=== PATIENT | female | born 1980 | race Caucasian/White ===

== ENCOUNTER → 2019-05-07 16:24 | Outpatient (CLI) | payer BC, SELFPAY ==
--- NOTE | 2019-05-07 16:28 | XR_ITS ---
XR chest 2V HISTORY: ITS.REASON: BRONCHITIS ORDERING PHYSICIAN: Stan Huitron MD PATIENT AGE: 38 years COMPARISON: 01/19/2019 FINDINGS: The cardiomediastinal silhouette and pulmonary vascularity are within normal limits. The lungs are clear without infiltrates, suspicious nodules, or pleural effusions. No acute bony abnormalities. IMPRESSION: Negative chest, no acute finding
== END ==
PROVIDERS: PCP Internal Medicine Adolescent Medicine; Visit Provider Internal Medicine Adolescent Medicine
DX: J40 Bronchitis, not specified as acute or chronic (principal)
CPT/HCPCS: 71046

== ENCOUNTER 2020-07-02 13:00 | Outpatient (RCR) | payer OTHER, SELFPAY | END 2020-07-02 14:05 | disposition home or self-care (01) | LOC: OT 13:00 | PROVIDERS: PCP Internal Medicine Adolescent Medicine; Visit Provider Internal Medicine Adolescent Medicine | DX: G54.0 Brachial plexus disorders (principal) | CPT/HCPCS: 97014; 97035; 97110; 97140; 97165; 97530; G0283 ==

== ENCOUNTER 2020-07-22 15:00 | Outpatient (RCR) | payer OTHER, SELFPAY ==
--- NOTE | 2020-07-08 17:54 | HMH.PTOPEV ---
PT Outpatient Evaluation Rehab PT Outpatient Evaluation Start: 07/08/20 16:48 Freq: Status: Active Protocol: Document 07/08/20 17:22 GUIDOALANA (Rec: 07/08/20 17:54 LASHAY [id number]) Electronically Signed By Nathaniel Yu, PT 07/08/20 17:22 Outpatient Therapy Subjective History Subjective History This is the initial Physical Therapy evaluation for Linda Ceron. Pt is a 39 y/o female referred to PT for c/o RUE pain and paresthesia along w/ pain and stiffness in cerval spine. Pt reports this began insidiously ~ 1stw ione of May . Pt rpeorts she felt like she slept wrong but pain increased throughout the day to a point of severe pain w/ inability to rotate head. P reports she began having paresthesia in RUE through whole arm Pt reports she went tochiro w/out relief and then had family member who is PT treat her and she was able to get some relief. Chief Complaint Pain,Spasms,Stiff,Paresthesia Symptom Type Ache,Throb,Numbness Symptoms Relieved By Nothing Symptoms Aggravated By Physical Activity Prior Functional Limitations None Current Functional Limitations Lifting,Housework,Desk Work/ Reading,Recreation Activity Symptom Description Intermittent Level of pain today (0-10) 3 Pain scale - at its best (0-10) 0 Pain scale - at its worst (0-10) 5 Cervical Eval Palpation Cervical Muscles R CT Junction,L CT Junction,R Upper Trapezius,L Upper Trapezius Passive Joint Mobility Cervical PIVM Dec: R C4/5 L C4/5 R C5/6 L C5/6 R C6/7 L C6/7 R C7/T1 L C7/T1 AROM Cervical Spine Extension Active Range of 45 Motion (degrees) Cervical Spine Flexion Active Range of 40 Motion (degrees) Cervical Spine Right Lateral Flexion 30 Active Range of Motion (degrees) Cervical Spine Left Lateral Flexion 30 Active Range of Motion (degrees) Cervical Spine Right Rotation A
== END 2020-07-22 15:05 | disposition home or self-care (01) ==
LOC: PT 15:00
PROVIDERS: PCP Internal Medicine Adolescent Medicine; Visit Provider Internal Medicine Adolescent Medicine
DX: G54.0 Brachial plexus disorders (principal)
CPT/HCPCS: 20560; 20561; 97010; 97012; 97014; 97110; 97163; G0283

== ENCOUNTER → 2021-08-23 10:27 | Outpatient (CLI) | payer OTHER, SELFPAY ==
[2021-08-23 12:45] LABS: Basophils # 0.1 K/mm3 (0-0.2); Basophils % 0.9 % (0.1-2.0); Eosinophils # 0.1 K/mm3 (0.0-0.4); Eosinophils % 0.9 % (0.1-12.0); Hematocrit 44.6 % (37.0-47.0); Hemoglobin 14.9 g/dL (12.2-16.2); Lymphocytes # 2.3 K/mm3 (0.7-4.5); Mean Corpuscular HGB Conc 33.3 g/dL (31.8-35.4); Mean Corpuscular Hemoglobin 32.2 pg (27.0-31.2); Mean Corpuscular Volume 96.6 fl (81-99); Mean Platelet Volume 7.5 fl (7.4-10.4); Monocytes # 0.4 K/mm3 (0.1-1.0); Monocytes % 4.1 % (1.7-9.3); Platelet Count 457 K/mm3 (142-424); Red Blood Count 4.61 M/mm3 (4.20-5.40); Red Cell Distribution Width 12.9 % (11.5-17.5); White Blood Count 8.8 K/mm3 (4.8-10.8)
[2021-08-23 13:07] LABS: HCG Qualitative, Serum Negative (Negative)
[2021-08-23 13:28] LABS: Alanine Aminotransferase 20 U/L (12-78); Albumin Level 4.7 g/dl (3.5-5.0); Albumin/Globulin Ratio 1.8 (1.1-1.8); Alkaline Phosphatase 62 U/L (38-126); Anion Gap 14.3 mEq/L (5-15); Aspartate Amino Transferase 28 U/L (14-36); Bilirubin,Total 0.5 mg/dl (0.2-1.3); Blood Urea Nitrogen 13 mg/dl (7-17); Calcium 9.9 mg/dl (8.4-10.2); Carbon Dioxide 27 mmol/L (22.0-30.0); Chloride 101 mmol/L (98-107); Chol/HDL Ratio 4.3 (1-3.5); Cholesterol 225 mg/dl (140-200); Estimated Glomerular Filt Rate 137 ml/min (>60); GFR (African American) 165 ML/MIN (>60); Globulin 2.6 g/dL (1.3-3.2); Glucose 104 mg/dl (74-100); HDL Cholesterol 52 mg/dl (40-60); Potassium 4.3 mmoL/L (3.5-5.1); Sodium 138 mmol/L (136-145); Total Protein,Serum 7.3 g/dl (6.3-8.2); Triglycerides 136 mg/dl (30-150); VLDL Cholesterol 27 mg/dL (0-40)
[2021-08-23 13:38] LABS: Direct LDL Cholesterol 134.48 mg/dL (100-129)
== END ==
PROVIDERS: PCP Internal Medicine Adolescent Medicine; Visit Provider Dermatology
DX: L70.0 Acne vulgaris (principal); Z79.899 Other long term (current) drug therapy
CPT/HCPCS: 36415; 80053; 80061; 84703; 85025

== ENCOUNTER → 2021-08-24 12:58 | Outpatient (POV) | payer OTHER, SELFPAY | PROVIDERS: Visit Provider Dermatology | DX: Z00.00 Encounter for general adult medical examination without abnormal findings (principal) ==

== ENCOUNTER → 2021-09-06 13:20 | Outpatient (CLI) | payer OTHER, SELFPAY ==
--- NOTE | 2021-09-06 13:22 | MM_ITS ---
PROCEDURE: MM DIG SCREENING MAMM BI W/CAD Digital Breast Tomosynthesis Included CLINICAL INDICATION: SCREENING There is no personal or family history of breast cancer., patient without complaints COMPARISON: No exams were available for comparison TECHNIQUE: Standard CC and MLO images and 3D Tomosynthesis was obtained. R2 CAD reviewed. FINDINGS: Prominent diffuse somewhat heterogenic fibroglandular densities are seen throughout both breasts and the findings are bilateral and symmetrical. There are no CAD markings. Rodrigo images are most helpful in this diffuse increased heterogenic parenchymal pattern I see no suspicious lesion and no suspicious microcalcifications. IMPRESSION: Diffusely dense and heterogenic parenchymal pattern with no suspicious lesions seen BI-RAD Category: 1 Negative FOLLOW-UP: 1YR 1 Year Follow-up (A letter has been sent to the patient regarding results of the study.) Dictated by: Dr. Ronaldo Matute MD 09/14/2021 11:06 Dr. Ronaldo Matute MD in [place] 09/14/2021 11:06
== END ==
PROVIDERS: PCP Internal Medicine Adolescent Medicine; Visit Provider Nurse Practitioner Family
DX: Z12.31 Encounter for screening mammogram for malignant neoplasm of breast (principal)
CPT/HCPCS: 77063; 77067

== ENCOUNTER → 2021-09-28 15:43 | Outpatient (POV) | payer OTHER, SELFPAY | PROVIDERS: Visit Provider Dermatology | DX: Z00.00 Encounter for general adult medical examination without abnormal findings (principal) ==

== ENCOUNTER → 2021-11-01 08:02 | Outpatient (CLI) | payer OTHER, SELFPAY ==
[2021-11-01 12:19] LABS: Basophils # 0.1 K/mm3 (0-0.2); Basophils % 0.9 % (0.1-2.0); Eosinophils # 0.1 K/mm3 (0.0-0.4); Eosinophils % 1.2 % (0.1-12.0); Hematocrit 42.8 % (37.0-47.0); Hemoglobin 14.2 g/dL (12.2-16.2); Lymphocytes # 2.3 K/mm3 (0.7-4.5); Lymphocytes % 25.4 % (10-50); Mean Corpuscular HGB Conc 33.2 g/dL (31.8-35.4); Mean Corpuscular Hemoglobin 31.8 pg (27.0-31.2); Mean Corpuscular Volume 95.7 fl (81-99); Mean Platelet Volume 7.1 fl (7.4-10.4); Monocytes # 0.5 K/mm3 (0.1-1.0); Monocytes % 5.3 % (1.7-9.3); Neutrophils # 6.1 K/mm3 (1.8-7.8); Neutrophils % 67.2 % (37.0-80.0); Platelet Count 421 K/mm3 (142-424); Red Blood Count 4.47 M/mm3 (4.20-5.40); Red Cell Distribution Width 12.7 % (11.5-17.5); White Blood Count 9.2 K/mm3 (4.8-10.8)
[2021-11-01 12:57] LABS: Alanine Aminotransferase 63 U/L (12-78); Albumin Level 4.6 g/dl (3.5-5.0); Albumin/Globulin Ratio 2.1 (1.1-1.8); Alkaline Phosphatase 57 U/L (38-126); Anion Gap 12.2 mEq/L (5-15); Aspartate Amino Transferase 52 U/L (14-36); Bilirubin,Total 0.3 mg/dl (0.2-1.3); Blood Urea Nitrogen 11 mg/dl (7-17); Calcium 9.9 mg/dl (8.4-10.2); Carbon Dioxide 29 mmol/L (22.0-30.0); Chloride 99 mmol/L (98-107); Cholesterol 229 mg/dl (140-200); Estimated Glomerular Filt Rate 111 ml/min (>60); GFR (African American) 134 ML/MIN (>60); Globulin 2.2 g/dL (1.3-3.2); Glucose 84 mg/dl (74-100); HDL Cholesterol 46 mg/dl (40-60); Potassium 4.2 mmoL/L (3.5-5.1); Sodium 136 mmol/L (136-145); Total Protein,Serum 6.8 g/dl (6.3-8.2); Triglycerides 180 mg/dl (30-150); VLDL Cholesterol 36 mg/dL (0-40)
[2021-11-01 13:09] LABS: Direct LDL Cholesterol 144.36 mg/dL (100-129)
[2021-11-01 17:22] LABS: HCG Qualitative, Serum Negative (Negative)
== END ==
PROVIDERS: PCP Internal Medicine Adolescent Medicine; Visit Provider Dermatology
DX: L70.0 Acne vulgaris (principal); Z79.899 Other long term (current) drug therapy
CPT/HCPCS: 80053; 80061; 84703; 85025

== ENCOUNTER → 2021-11-02 15:12 | Outpatient (POV) | payer OTHER, SELFPAY | PROVIDERS: Visit Provider Dermatology | DX: Z00.00 Encounter for general adult medical examination without abnormal findings (principal) ==

== ENCOUNTER → 2021-12-07 12:55 | Outpatient (POV) | payer OTHER, SELFPAY | PROVIDERS: Visit Provider Dermatology | DX: Z00.00 Encounter for general adult medical examination without abnormal findings (principal) ==

== ENCOUNTER → 2022-01-26 12:18 | Outpatient (CLI) | payer OTHER, SELFPAY ==
[2022-01-26 13:17] LABS: Basophils # 0.1 K/mm3 (0-0.2); Basophils % 0.7 % (0.1-2.0); Eosinophils % 0.3 % (0.1-12.0); Hematocrit 44.2 % (37.0-47.0); Hemoglobin 14.6 g/dL (12.2-16.2); Lymphocytes # 2.2 K/mm3 (0.7-4.5); Lymphocytes % 22.5 % (10-50); Mean Corpuscular HGB Conc 33.1 g/dL (31.8-35.4); Mean Corpuscular Volume 96.7 fl (81-99); Mean Platelet Volume 7.4 fl (7.4-10.4); Monocytes # 0.4 K/mm3 (0.1-1.0); Monocytes % 3.8 % (1.7-9.3); Neutrophils # 7.2 K/mm3 (1.8-7.8); Neutrophils % 72.7 % (37.0-80.0); Platelet Count 421 K/mm3 (142-424); Red Blood Count 4.57 M/mm3 (4.20-5.40); Red Cell Distribution Width 13.1 % (11.5-17.5); White Blood Count 9.9 K/mm3 (4.8-10.8)
[2022-01-26 14:15] LABS: Chloride 98 mmol/L (98-107); Potassium 4.6 mmoL/L (3.5-5.1); Sodium 134 mmol/L (136-145)
[2022-01-26 14:18] LABS: Alanine Aminotransferase 147 U/L (12-78); Alkaline Phosphatase 77 U/L (38-126); Anion Gap 14.6 mEq/L (5-15); Aspartate Amino Transferase 85 U/L (14-36); Bilirubin,Total 0.9 mg/dl (0.2-1.3); Blood Urea Nitrogen 11 mg/dl (7-17); Calcium 9.4 mg/dl (8.4-10.2); Carbon Dioxide 26 mmol/L (22.0-30.0); Estimated Glomerular Filt Rate 110 ml/min (>60); GFR (African American) 133 ML/MIN (>60); Globulin 2.5 g/dL (1.3-3.2); Glucose 95 mg/dl (74-100); Total Protein,Serum 7.5 g/dl (6.3-8.2)
== END ==
PROVIDERS: Visit Provider Nurse Practitioner Family
DX: R10.11 Right upper quadrant pain (principal)
CPT/HCPCS: 36415; 80053; 85025

== ENCOUNTER → 2022-01-27 07:32 | Outpatient (CLI) | payer OTHER, SELFPAY ==
--- NOTE | 2022-01-27 07:34 | US_ITS ---
FINAL REPORT CLINICAL HISTORY: RUQ PAIN,LFT ELEVATION FINDINGS: Sonographic images of the right upper quadrant were obtained. The pancreas is partially obscured.The liver has an unremarkable appearance. There is sludge in the gallbladder without evidence of gallstones. There is nonspecific gallbladder wall thickening. The gallbladder has phyrgian cap. There is no evidence of biliary ductal dilatation.The common duct measures 2 mm. Limited images of the right kidney are unremarkable. IMPRESSION: Nonspecific gallbladder wall thickening. Sludge in the gallbladder without evidence of gallstones. Reviewed, Interpreted and Dictated by Raymundo Chung III, MD Transcribed by Tanisha Soto Authenticated by Raymundo Chung III, MD on 01/27/2022 09:16:04 AM [facility]
== END ==
PROVIDERS: PCP Internal Medicine Adolescent Medicine; Visit Provider Nurse Practitioner Family
DX: R10.11 Right upper quadrant pain (principal); R79.89 Other specified abnormal findings of blood chemistry
CPT/HCPCS: 76705

== ENCOUNTER → 2022-02-11 08:42 | Outpatient (CLI) | payer OTHER, SELFPAY ==
[2022-02-11 09:03] LABS: Basophils # 0.1 K/mm3 (0-0.2); Eosinophils # 0.1 K/mm3 (0.0-0.4); Eosinophils % 1.1 % (0.1-12.0); Hematocrit 44.1 % (37.0-47.0); Hemoglobin 14.2 g/dL (12.2-16.2); Lymphocytes # 1.7 K/mm3 (0.7-4.5); Lymphocytes % 18.5 % (10-50); Mean Corpuscular HGB Conc 32.2 g/dL (31.8-35.4); Mean Corpuscular Volume 99.4 fl (81-99); Mean Platelet Volume 7.3 fl (7.4-10.4); Monocytes # 0.5 K/mm3 (0.1-1.0); Monocytes % 5.4 % (1.7-9.3); Neutrophils # 6.9 K/mm3 (1.8-7.8); Platelet Count 424 K/mm3 (142-424); Red Blood Count 4.43 M/mm3 (4.20-5.40); Red Cell Distribution Width 13.2 % (11.5-17.5); White Blood Count 9.3 K/mm3 (4.8-10.8)
[2022-02-11 10:00] LABS: Chloride 105 mmol/L (98-107)
[2022-02-11 10:01] LABS: Potassium 4.2 mmoL/L (3.5-5.1); Sodium 139 mmol/L (136-145)
[2022-02-11 10:03] LABS: Alanine Aminotransferase 38 U/L (12-78); Alkaline Phosphatase 55 U/L (38-126); Aspartate Amino Transferase 32 U/L (14-36); Bilirubin,Total 0.7 mg/dl (0.2-1.3); Blood Urea Nitrogen 11 mg/dl (7-17); Estimated Glomerular Filt Rate 110 ml/min (>60); GFR (African American) 133 ML/MIN (>60)
[2022-02-11 10:04] LABS: Albumin Level 4.4 g/dl (3.5-5.0); Albumin/Globulin Ratio 1.9 (1.1-1.8); Anion Gap 10.2 mEq/L (5-15); Carbon Dioxide 28 mmol/L (22.0-30.0); Globulin 2.3 g/dL (1.3-3.2); Glucose 82 mg/dl (74-100); Total Protein,Serum 6.7 g/dl (6.3-8.2)
== END ==
PROVIDERS: Nurse Practitioner Family; Visit Provider Internal Medicine Adolescent Medicine
DX: R74.8 Abnormal levels of other serum enzymes (principal)
CPT/HCPCS: 36415; 80053; 85025

== ENCOUNTER → 2022-02-15 09:57 | Outpatient (POV) | payer OTHER, SELFPAY | PROVIDERS: Visit Provider Dermatology | DX: Z00.00 Encounter for general adult medical examination without abnormal findings (principal) ==

== ENCOUNTER → 2022-09-14 09:47 | Outpatient (CLI) | payer OTHER, SELFPAY ==
--- NOTE | 2022-09-14 09:50 | MM_ITS ---
PROCEDURE INFORMATION: Exam: MG Bilateral Screening 3D Mammography Exam date and time: 09/14/2022 9:43 AM Age: 41 years old Clinical indication: Screening examination. No family history of breast cancer. TECHNIQUE: Imaging protocol: Bilateral Screening tomosynthesis and 2D mammography including computer-aided detection (CAD) when performed. COMPARISON: MG MM DIG SCREENING MAMM BI W/CAD 09/06/2021 1:42 PM FINDINGS: MAMMOGRAPHY: Breast composition: The breasts are heterogeneously dense, which may obscure small masses. Mass: None. Architectural distortion: None. Calcifications: No suspicious calcifications. Asymmetric density: None. Skin thickening: None. Axillary adenopathy: None. IMPRESSION: No mammographic evidence of malignancy. Annual screening is recommended unless otherwise clinically indicated. ASSESSMENT: BI-RADS Category 1: Negative
== END ==
PROVIDERS: PCP Internal Medicine Adolescent Medicine; Visit Provider Nurse Practitioner Family
DX: Z12.31 Encounter for screening mammogram for malignant neoplasm of breast (principal)
CPT/HCPCS: 77063; 77067

== ENCOUNTER → 2022-11-09 08:26 | Outpatient (CLI) | payer OTHER, SELFPAY ==
[2022-11-09 09:21] LABS: Chloride 102 mmol/L (98-107); Potassium 4.1 mmoL/L (3.5-5.1); Sodium 139 mmol/L (136-145)
[2022-11-09 09:24] LABS: Anion Gap 13.1 mEq/L (5-15); Blood Urea Nitrogen 9 mg/dl (7-17); Calcium 9.8 mg/dl (8.4-10.2); Carbon Dioxide 28 mmol/L (22.0-30.0); Estimated Glomerular Filt Rate 110 ml/min (>60); GFR (African American) 133 ML/MIN (>60); Glucose 95 mg/dl (74-100)
[2022-11-09 09:35] LABS: Basophils # 0.2 K/mm3 (0-0.2); Basophils % 2.4 % (0.1-2.0); Eosinophils # 0.1 K/mm3 (0.0-0.4); Eosinophils % 0.9 % (0.1-12.0); Hemoglobin 14.7 g/dL (12.2-16.2); Lymphocytes # 1.8 K/mm3 (0.7-4.5); Lymphocytes % 23.8 % (10-50); Mean Corpuscular HGB Conc 32.7 g/dL (31.8-35.4); Mean Corpuscular Hemoglobin 32.4 pg (27.0-31.2); Mean Corpuscular Volume 99.1 fl (81-99); Mean Platelet Volume 7.4 fl (7.4-10.4); Monocytes # 0.3 K/mm3 (0.1-1.0); Monocytes % 3.8 % (1.7-9.3); Neutrophils # 5.3 K/mm3 (1.8-7.8); Neutrophils % 69.1 % (37.0-80.0); Platelet Count 366 K/mm3 (142-424); Red Blood Count 4.54 M/mm3 (4.20-5.40); Red Cell Distribution Width 12.8 % (11.5-17.5); White Blood Count 7.6 K/mm3 (4.8-10.8)
[2022-11-09 09:44] LABS: Urine Pregnancy, HCG Qual. Negative (Negative)
== END ==
PROVIDERS: PCP Nurse Practitioner Family; Visit Provider Surgery
DX: Z01.812 Encounter for preprocedural laboratory examination (principal); K42.9 Umbilical hernia without obstruction or gangrene
CPT/HCPCS: 36415; 80048; 81025; 85025

== ENCOUNTER → 2022-11-09 08:50 | Outpatient (CLI) | payer OTHER, SELFPAY ==
--- NOTE | 2022-11-09 08:50 | CT_ITS ---
FINAL REPORT TECHNIQUE: Postcontrast axial images through the abdomen and pelvis were performed. Oral contrast was administered. This study was performed with techniques to keep radiation doses as low as reasonably achievable, (ALARA). Individualized dose reduction techniques using automated exposure control or adjustment of mA and/or kV according to the patient's size were employed. CLINICAL HISTORY: abdominal pain, umbilical hernia FINDINGS: Abdomen: There is mild bibasilar atelectasis. The liver is normal in size and attenuation. The gallbladder is present. There is a presumed cyst in the spleen measuring 16 mm.. The adrenals are normal. The pancreas is unremarkable. The kidneys enhance appropriately. The aorta is normal in caliber. No free fluid or adenopathy is identified. No findings for mechanical bowel obstruction are identified. Pelvis: The appendix is unremarkable. There is a supraumbilical hernia containing fat. The orifice measures 16 mm in transverse dimension. The hernia sac measures 38 mm in transverse dimension. There is also a small umbilical hernia containing fat. An IUD is present in the uterus. There is a presumed cyst in the right ovary measuring 37 mm. A small left ovarian cyst is also noted. The urinary bladder is unremarkable. No free fluid, free air, abscess or adenopathy is identified. IMPRESSION: Supraumbilical hernia containing fat. Small umbilical hernia containing fat. Reviewed, Interpreted and Dictated by Raymundo Cuhng III, MD Transcribed by Sherry Galeana Authenticated and [facility]
== END ==
PROVIDERS: PCP Nurse Practitioner Family; Visit Provider Surgery
DX: K42.9 Umbilical hernia without obstruction or gangrene (principal)
CPT/HCPCS: 74177; Q9967

== ENCOUNTER 2022-11-14 08:53 | Day surgery (SDC) | payer OTHER, SELFPAY ==
[2022-11-07 09:59] VITALS: BMI 24.3
[2022-11-14] VITALS (12 sets, daily range): BP systolic 105–128; BP diastolic 60–78; PULSE 66–79; RESP 14–17; TEMP 6.1–43; O2SAT 96–100
--- NOTE | 2022-11-14 09:57 | EXP.ANES.CKL ---
[facility] Disclaimer: The information contained in this section may have been updated after the patient was seen, as this information can be updated by other users. Medical History (Updated 11/07/22 @ 09:57 by Radha Grace RN) Acne Allergies Hernia Surgical History H/O laparoscopy History of Hx of LASIK Hx of tonsillectomy Family History Other Colon cancer Family history of Alzheimer's disease Family history of diabetes mellitus type II Family history of hyperlipidemia Family history of hypertension Ovarian cancer Social History Smoking Status: Never smoker alcohol intake: never substance use type: denies use current occupational status: employed Travel in the last 8 weeks: Inside the [place] [facility] Anesthesia Checklist Patient Identification Patient Identification: Arm Band Structural Data Admitted From: Home Planned Operative Procedure/s: Laparoscopic Ventral Hernia Repair Consent for Planned Operative Procedure(s) Verified: Yes Verified Documents: Surgical Consent and History and Physical NPO Status Verified Time NPO: 00:00 Additional verifications Anesthesia Reactions: Yes (PONV) Hx Blood Transfusions: No Blood Transfusion Reaction: No Airway Assessment C-Spine Mobility Assessed: Yes TMJ Mobility Assessed: Yes Dentition: Good Dentition Neurological Assessment Level of Consciousness: Awake and Alert Anesthesia Plan Anesthesia Risk discussed: Yes Anesthesia Plan: Verified ASA Class: I Anesthesia Type: General
--- NOTE | 2022-11-14 11:26 | EXP.OP.NOTE ---
Date of procedure: 11/14/22 Pre-op Diagnosis:: Ventral hernia Post-op Diagnosis:: Same Procedure performed:: Laparoscopic ventral hernia repair with placement of 8 cm circular Bard ventral Conrad mesh Surgeon:: Raymundo Sanders MD UNDERWRITING SALES REPRESENTATIVE:: Deangelo Donahue Anesthesia: MILA Estimated blood loss (mL): 10 Clinical Note:: Patient is a pleasant 41-year-old female who is a self-referral for umbilical hernia .? She is employed here at [employer].? She has been diagnosed with a hernia at her umbilical area about 10 years ago when she had been carrying twins.? She did undergo a diagnostic laparoscopy prior to getting .? She recently developed significant vomiting and diarrhea.? This had improved but then she had nausea.? She then noticed some tenderness at her hernia site when she reduced it.? It has been reducible.? She had radiation of some tenderness into the left upper quadrant.? She does state that the tenderness has now improved as has her GI symptoms.? She states that when she reduces the hernia she does hear sounds consistent with bowel. I discussed the options with the patient. I felt that diagnostic laparoscopy with laparoscopically directed repair versus fully laparoscopic repair would be warranted. I did obtain a CT scan preoperatively. This revealed findings of supraumbilical hernia containing fat. There is also noted a small umbilical hernia. Review of the CT scan revealed a hernia above the umbilicus with a defect measuring up to approximately one-point centimeters. There did not appear to be a true umbilical hernia. Operative findings:: She had a hernia medial belt of her umbilicus with herniated fatty tissue from the falciform ligament. Defect measured less than 2 cm. There is no evidence of any true hernia at her umbilicus. Gallbladder was slightly distended. Operative note:: Consent was obtained and patient was taken the operating room. She was given preoperative intravenous antibiotics. In the operating room she was placed in a supine position. General anesthesia was induced. Abdomen was prepped and draped in the standard surgical fashion. 5 mm incision was made in the left subcostal area. 5 mm optical trocar was inserted at this site and CO2 pneumoperitoneum was achieved to 15 mmHg. Intraperitoneal contents were visualized. There appeared to be herniated fatty tissues above her umbilicus from the falciform ligament. Ultimately 5 mm trocar was inserted in the left lower and in the right lower abdomen. The falciform ligament was taken down from the anterior abdominal wall using TIA ultrasonic harmonic sue. Peritoneal attachments at the edges of the fascial defect were taken down using TIA ultrasonic harmonic sue and ultimately the contents were reduced. The falciform ligament was taken down to above the liver. Inspection was carried out of the umbilicus. There did not appear to be a true fascial defect. Overall size of the hernia above her umbilicus appeared to have a defect measuring well under 2 cm. Decision was made for placement of 8 cm circular Bard Ventralex mesh. 12 mm trocar was inserted at the site of the hernia. Bard Ventralex mesh was inserted through the trocar. Trocar was then removed and mesh was observed laparoscopically to cover the fascial defect down to the umbilicus with good fascial overlap. Given the nature of the hernia it was secured around its periphery with the OPTifix device. Repair appeared adequate. There appeared to be good hemostasis. At this time pneumoperitoneum was evacuated. Attention was turned to anterior mesh. The tails of the mesh were sutured superiorly and inferiorly to the fascial edges using 2-0 PDS. The Prolene tails of the mesh were then cut flush to the fascia. The fascia was not closed over the mesh as this was felt to be potentially counterproductive and possibly lead to higher recurrence. Once again CO2 pneumoperitoneum was reestablished. Mesh was inspect
--- NOTE | 2022-11-14 11:33 | EXP.ANES.I ---
[facility] Anesthesia Record Part I Anesthesia Record I Intake, IV Amount: 1,200 Estimated blood loss (mL): 10 Urine output (mL): 0 Blood Products used (#): none Blood Pressure: 105/69 SaO2: 96 Pulse Rate: 76 Respiratory Rate: 16 Temperature: 97.8 F Patient is:: Drowsy and Stable Stable to PACU at:: 11:30
--- NOTE | 2022-11-15 07:37 | EXP.ANES.II ---
[facility] Anesthesia Record Part II Anesthesia Record Part II Discharge Time: 12:20 Destination: Surgical Day Care (OP Surgery) PACU nurse assessment reviewed?: Yes Patient Condition:: Good Anesthesia Complications:: None Swallowing reflex intact?: Yes Cyanosis?: No Blood Pressure: 118/68 Pulse Rate: 71 Temperature: 98.1 F Mental Status: Alert & Oriented Pain level:: 0 Nausea and/or vomitting:: Nauseated Intake, IV Amount: 0
[2022-11-15 07:40] VITALS: BP 118/68; PULSE 71; TEMP 36.7
== END 2022-11-14 13:25 | disposition home or self-care (01) ==
PROVIDERS: PCP Nurse Practitioner Family; Visit Provider Surgery
PROC: 0WQF4ZZ Repair Abdominal Wall, Percutaneous Endoscopic Approach (ICD-10-PCS; CPT 49652; principal; 2022-11-14 10:45)
DX: K43.9 Ventral hernia without obstruction or gangrene (principal); Z79.899 Other long term (current) drug therapy
CPT/HCPCS: 49652; 96374; C1781; J2405; J2710

== ENCOUNTER → 2023-01-03 07:56 | Outpatient (CLI) | payer OTHER, SELFPAY ==
[2023-01-03 09:09] LABS: Basophils # 0.1 K/mm3 (0-0.2); Basophils % 0.8 % (0.1-2.0); Eosinophils # 0.1 K/mm3 (0.0-0.4); Hematocrit 44.3 % (37.0-47.0); Hemoglobin 14.1 g/dL (12.2-16.2); Lymphocytes # 1.7 K/mm3 (0.7-4.5); Lymphocytes % 26.8 % (10-50); Mean Corpuscular HGB Conc 31.9 g/dL (31.8-35.4); Mean Corpuscular Hemoglobin 31.7 pg (27.0-31.2); Mean Corpuscular Volume 99.5 fl (81-99); Mean Platelet Volume 7.4 fl (7.4-10.4); Monocytes # 0.3 K/mm3 (0.1-1.0); Monocytes % 4.5 % (1.7-9.3); Neutrophils # 4.3 K/mm3 (1.8-7.8); Neutrophils % 65.9 % (37.0-80.0); Platelet Count 373 K/mm3 (142-424); Red Blood Count 4.45 M/mm3 (4.20-5.40); White Blood Count 6.5 K/mm3 (4.8-10.8)
[2023-01-03 16:27] LABS: Alanine Aminotransferase 44 U/L (12-78); Albumin Level 4.5 g/dl (3.5-5.0); Alkaline Phosphatase 56 U/L (38-126); Anion Gap 11.5 mEq/L (5-15); Aspartate Amino Transferase 38 U/L (14-36); Bilirubin,Total 0.6 mg/dl (0.2-1.3); Blood Urea Nitrogen 14 mg/dl (7-17); Calcium 9.2 mg/dl (8.4-10.2); Carbon Dioxide 27 mmol/L (22.0-30.0); Chloride 104 mmol/L (98-107); Chol/HDL Ratio 4.2 (1-3.5); Cholesterol 191 mg/dl (140-200); Estimated Glomerular Filt Rate 110 ml/min (>60); GFR (African American) 133 ML/MIN (>60); Globulin 2.3 g/dL (1.3-3.2); Glucose 96 mg/dl (74-100); HDL Cholesterol 45 mg/dl (40-60); Potassium 4.5 mmoL/L (3.5-5.1); Sodium 138 mmol/L (136-145); Total Protein,Serum 6.8 g/dl (6.3-8.2); Triglycerides 49 mg/dl (30-150); VLDL Cholesterol 10 mg/dL (0-40)
[2023-01-03 16:38] LABS: Direct LDL Cholesterol 125.37 mg/dL (100-129)
[2023-01-03 16:54] LABS: 25-OH Vitamin D, Total 25.4 ng/mL (30-100)
[2023-01-03 17:06] LABS: Thyroid Stimulating Hormone 0.28 uIU/mL (0.465-4.68)
[2023-01-03 17:26] LABS: Vitamin B12 773 pg/mL (239-931)
== END ==
PROVIDERS: PCP Nurse Practitioner Family; Visit Provider Nurse Practitioner Family
DX: Z00.00 Encounter for general adult medical examination without abnormal findings (principal); R53.81 Other malaise; Z86.39 Personal history of other endocrine, nutritional and metabolic disease
CPT/HCPCS: 36415; 80053; 80061; 82306; 82607; 84443; 85025

== ENCOUNTER → 2023-05-02 08:05 | Outpatient (POV) | payer OTHER, SELFPAY | PROVIDERS: Visit Provider Dermatology | DX: Z00.00 Encounter for general adult medical examination without abnormal findings (principal) ==

== ENCOUNTER → 2023-10-27 07:47 | Outpatient (CLI) | payer OTHER, SELFPAY ==
--- NOTE | 2023-10-27 07:51 | MM_ITS ---
PROCEDURE INFORMATION: Exam: MG Bilateral Screening 3D Mammography Exam date and time: 10/27/2023 7:53 AM Age: 42 years old Clinical indication: Screening examination TECHNIQUE: Imaging protocol: Bilateral Screening tomosynthesis and 2D mammography including computer-aided detection (CAD) when performed. COMPARISON: 1. MG MM DIG SCREENING MAMM BI W/CAD 09/14/2022 9:43 AM 2. MG MM DIG SCREENING MAMM BI W/CAD 09/06/2021 1:42 PM FINDINGS: MAMMOGRAPHY: Breast composition: The breasts are heterogeneously dense, which may obscure small masses. Mass: None. Architectural distortion: None. Calcifications: No suspicious calcifications. Asymmetric density: None. Skin thickening: None. Axillary adenopathy: None. IMPRESSION: No mammographic evidence of malignancy. Annual screening is recommended unless otherwise clinically indicated. ASSESSMENT: BI-RADS Category 1: Negative
== END ==
PROVIDERS: PCP Nurse Practitioner Family; Visit Provider Nurse Practitioner Family
DX: Z12.31 Encounter for screening mammogram for malignant neoplasm of breast (principal)
CPT/HCPCS: 77063; 77067

== ENCOUNTER 2024-11-25 11:05 | Outpatient (CLI) | payer OTHER, SELFPAY ==
--- NOTE | 2024-11-25 11:05 | MM_ITS ---
PROCEDURE INFORMATION: Exam: MG Bilateral Screening 3D Mammography Exam date and time: 11/25/2024 10:52 AM Age: 43 years old Clinical indication: Screening examination TECHNIQUE: Imaging protocol: Bilateral Screening tomosynthesis and 2D mammography including computer-aided detection (CAD) when performed. COMPARISON: 1. MG MM DIG SCREENING MAMM BI W/CAD 10/27/2023 7:53 AM 2. MG MM DIG SCREENING MAMM BI W/CAD 09/14/2022 9:43 AM FINDINGS: MAMMOGRAPHY: Breast composition: The breasts are heterogeneously dense, which may obscure small masses. Mass: None. Architectural distortion: None. Calcifications: No suspicious calcifications. Asymmetric density: None. Skin thickening: None. Axillary adenopathy: None. IMPRESSION: No mammographic evidence of malignancy. Annual screening is recommended unless otherwise clinically indicated. ASSESSMENT: BI-RADS Category 1: Negative.
[2024-11-25 11:55] LABS: Microscopic, Urine URINE MICROSCOPIC (MICROSCOPIC)
[2024-11-25 11:58] LABS: Basophils # 0.1 K/mm3 (0-0.2); Eosinophils # 0.1 K/mm3 (0.0-0.4); Eosinophils % 0.8 % (0.1-12.0); Hematocrit 40.9 % (37.0-47.0); Lymphocytes % 27.5 % (10-50); Mean Corpuscular HGB Conc 34.2 g/dL (31.8-35.4); Mean Corpuscular Hemoglobin 31.9 pg (27.0-31.2); Mean Corpuscular Volume 93.2 fl (81-99); Mean Platelet Volume 8.6 fl (7.4-10.4); Monocytes # 0.5 K/mm3 (0.1-1.0); Neutrophils # 4.6 K/mm3 (1.8-7.8); Neutrophils % 63.6 % (37.0-80.0); Platelet Count 334 K/mm3 (142-424); Red Blood Count 4.39 M/mm3 (4.20-5.40); Red Cell Distribution Width 11.8 % (11.5-17.5); White Blood Count 7.2 K/mm3 (4.8-10.8)
[2024-11-25 12:04] LABS: Appearance,Urine CLEAR (Clear); Bilirubin,Urine Negative (Negative); Blood, Urine Negative (Negative); Color,Urine YELLOW (Yellow); Glucose,Urine (UA) Negative (Negative); Ketones,Urine Negative (Negative); Leukocyte Esterase,Urine Negative (Negative); Nitrate,Urine Negative (Negative); Protein,Urine Negative (Negative); Urobilinogen,Urine 0.2 EU/dl (0.2)
[2024-11-25 12:11] LABS: Bacteria,Urine Trace /lpf; Squamous Epithelial Cell,Urine Occasional #/hpf (0-5)
[2024-11-25 12:16] LABS: Chloride 102 mmol/L (98-107)
[2024-11-25 12:17] LABS: Potassium 4.6 mmoL/L (3.5-5.1)
[2024-11-25 12:19] LABS: Alanine Aminotransferase 22 U/L (12-78); Aspartate Amino Transferase 34 U/L (14-36); Blood Urea Nitrogen 13 mg/dl (7-17); Carbon Dioxide 27 mmol/L (22.0-30.0); Estimated Glomerular Filt Rate 109 ml/min (>60); GFR (African American) 132 ML/MIN (>60)
[2024-11-25 12:20] LABS: Alkaline Phosphatase 48 U/L (38-126); Bilirubin,Total 0.9 mg/dl (0.2-1.3); Chol/HDL Ratio 5.6 (1-3.5); Cholesterol 258 mg/dl (140-200); Glucose 95 mg/dl (74-100); HDL Cholesterol 46 mg/dl (40-60); Iron 158 ug/dL (37-170); Total Protein,Serum 6.7 g/dl (6.3-8.2); Triglycerides 159 mg/dl (30-150); VLDL Cholesterol 32 mg/dL (0-40)
[2024-11-25 12:29] LABS: Total Iron Binding Capacity 357 ug/dL (265-497)
[2024-11-25 12:31] LABS: Direct LDL Cholesterol 162.51 mg/dL (100-129)
[2024-11-25 12:36] LABS: Free T4 (Free Thyroxine) 0.82 ng/dl (0.78-2.19)
[2024-11-25 12:55] LABS: Ferritin 51.6 ng/ml (6.24-137)
[2024-11-25 13:00] LABS: HIV Combo NEGATIVE (Negative)
[2024-11-25 13:18] LABS: 25-OH Vitamin D, Total 56.1 ng/mL (30-100)
[2024-11-25 13:57] LABS: Vitamin B12 825 pg/mL (239-931)
[2024-11-25 14:31] LABS: Albumin Level 4.8 g/dl (3.5-5.0); Albumin/Globulin Ratio 2.5 (1.1-1.8); Anion Gap 12.6 mEq/L (5-15); Globulin 1.9 g/dL (1.3-3.2); Sodium 137 mmol/L (136-145)
[2024-11-27 05:10] LABS: HCV Ab Non Reactive (Non Reactive)
== END 2024-11-25 23:59 | disposition home or self-care (01) ==
LOC: RAD 11:05
PROVIDERS: PCP Internal Medicine; Visit Provider Internal Medicine
DX: Z00.00 Encounter for general adult medical examination without abnormal findings (principal); Z12.31 Encounter for screening mammogram for malignant neoplasm of breast
CPT/HCPCS: 77063; 77067; 80053; 80061; 81001; 82306; 82607; 82728; 83540; 83550; 84439; 84443; 85025; 86803; 87086; 87389